=== PATIENT | male | born 1945 | race Hispanic/Latino ===

== ENCOUNTER 2018-06-28 09:50 | Day surgery (SDC) | payer MEDICARE ==
[2018-06-21 14:03] VITALS: BMI 23.2
[2018-06-28] MEDS ORDERED: Lidocaine 2% MPF (5 ml) Inj ONE (10:04)
[2018-06-28] MEDS ORDERED: Bupivacaine HCl 0.5% PF (10 ml) Inj ONE ×2 (10:05)
[2018-06-28] MEDS ORDERED: ceFAZolin 1 gm in NS 1 GM/100 ML BAG IVPB ONE (10:06)
[2018-06-28] MEDS ORDERED: Midazolam 2 MG/2 ML VIAL ONE (10:52)
[2018-06-28] MEDS ORDERED: Propofol 10 mg/ml Inj (20 ML) ONE (10:53)
[2018-06-28] MEDS ORDERED: Bacitracin Ointment 30 GM TUBE ONE (11:15)
[2018-06-28] MEDS ORDERED: Lactated Ringer's 1,000 ML IV ONE (11:30)
--- NOTE | 2018-06-28 11:32 | PCM.SURG1 ---
Surgeon's Initial Post Op Note - Surgeon's Notes Surgeon: Dr. Campuzano Brake Lining Maker: Dr. Bethea PGY1, Dr. Cobos PGY1 Type of Anesthesia: General IV, Local Pre-Operative Diagnosis: Left foot suspicious lesion Operative Findings: see dictation. I: 10 cc 1:1 2% lidocaine plain, 0.5% marcaine plain. M xeroform DSD PEPITO Post-Operative Diagnosis: same Operation Performed: Excision of left foot suspicious soft tissue lesion Specimen/Specimens Removed: left foot soft tissue lesion Estimated Blood Loss: EBL {In ML}: 5 Blood Products Given: N/A Drains Used: No Drains Post-Op Condition: Good Date of Surgery/Procedure: 06/28/18 Time of Surgery/Procedure: 11:32
[2018-06-28] MEDS ORDERED: HYDROmorphone 0.5 mg/0.5 ml ISec IVP PRN (11:33)
[2018-06-28] MEDS ORDERED: Oxycodone/Acetaminophen 5/325 mg Tab PO PRN ×2 (11:33)
[2018-06-28 13:59] VITALS: RESP 18
[2018-06-28 14:03] VITALS: BP 116/83; PULSE 93; TEMP 97.8; O2SAT 96
--- NOTE | 2018-07-04 06:09 | OP ---
PROCEDURE DATE: 06/28/2018 SURGEON: Aung Emanuel DPM MOUNTER AUTOMATIC: Norris Adam MD, PGY1 and Dr. Cobos, PGY-1 ANESTHESIA: General IV sedation with local. PREOPERATIVE DIAGNOSIS: Left foot suspicious lesion. POSTOPERATIVE DIAGNOSIS: Left foot suspicious lesion. NAME OF PROCEDURE: Excision of left foot suspicious soft tissue lesion. INDICATIONS: The patient is a 72-year-old male with the above diagnosis. The patient at this time has exhausted all conservative treatments and is now offering for surgical intervention. The patient signed a consent after careful explanation of risks, benefits, complications, and alternatives for surgical procedure. No guarantees were given nor implied. NPO status was confirmed prior to taking the patient to the OR. PREPARATION: The patient was brought to the operating room and placed on the operating room table in a supine position. A time-out was performed for identification of the correct patient and procedure. After induction of general anesthesia, the left foot was locally blocked with 10 mL of 1:1 mixture of 2% lidocaine plain and 0.5% Marcaine plain in a local block fashion. The left foot was then prepped and draped in a normal sterile manner and the procedure began. No tourniquet was used during the procedure. DESCRIPTION OF PROCEDURE: Attention was directed to the medial aspect of the left mid foot where a suspicious soft tissue lesion was identified with wide skin margins. The lesion was marked out using a skin marker in an attempt to reveal clean margins. At this point, a #15 blade was used to make a circular lesion on the margin of the lesion. Using a 1-2 pickup, the lesion was lifted and deeper incision was made using the blade to fully excise the lesion from the skin down to the layer of the superficial fascia. The lesion was removed from the left foot and passed off the operating room table to be sent for pathology. Using a needle point Bovie, all sites of bleeding were cauterized. The site was then flushed with sterile saline mixed with peroxide, and the site was then dressed with Xeroform, dry sterile dressing and Tao wrap. POSTOPERATIVE CONDITION: The patient tolerated the anesthesia and procedure well and was escorted to recovery room with vital signs stable, neurovascular status intact to the left lower extremity. The patient will follow up as an outpatient with Dr. Emanuel within one week of the procedure. NORRIS ADAM MD Aung Aquilino Zuniga DPM
== END 2018-06-28 13:45 | disposition designated cancer center or children's hospital (05) ==
LOC: C.SDS 09:50
PROVIDERS: ATTEND Podiatrist Foot Surgery
DX: C44.719 Basal cell carcinoma of skin of left lower limb, including hip (principal)
CPT/HCPCS: 28039; 88305; 88331; J0690; J2250; J2704; J3010; J7120